=== PATIENT | male | born 1965 | race Caucasian/White ===

== ENCOUNTER 2019-01-08 08:29 | Emergency (ER) | payer OTHER ==
[~2019-01-08] VITALS: Ht 170.2 cm; Wt 72.6 kg
[2019-01-08 08:34] VITALS: BP 135/80
--- NOTE | 2019-01-08 08:42 | NUR ---
Patient ambulated to bed 9. RN evaluating patient at bedside.
--- NOTE | 2019-01-08 08:45 | NUR ---
AAO X4 PT AMBULATES TO BED 9 W/ C/O INTERMITENT LUQ ABDOMINAL PAIN RADIATING TO LEFT BACK X 2 WEEKS WHILE WORKING ON HIS CAR. DENIES TRAUMA, NVD MED HX: DENIES
--- NOTE | 2019-01-08 08:47 | NUR ---
Dr. Mccormack evaluating patient at bedside.
[2019-01-08 09:20] LABS: BASOPHILS # (AUTO) 0.1 K/uL (0.00-0.22); BASOPHILS % (AUTO) 0.9 % (0.0-2.0); EOSINOPHILS # (AUTO) 0.1 K/uL (0-0.4); EOSINOPHILS % (AUTO) 1.1 % (0.0-4.0); HEMATOCRIT 47.7 % (36-52); HEMOGLOBIN 16.1 g/dL (12.0-18.0); LYMPHOCYTES % (AUTO) 30.1 % (20.5-51.1); MEAN CORPUSCULAR HEMOGLOBIN 32 pg (27-31); MEAN CORPUSCULAR HGB CONC 34 g/dL (33-37); MEAN CORPUSCULAR VOLUME 93.8 fL (80-94); MONOCYTES # (AUTO) 0.6 K/uL (0.8-1.0); MONOCYTES % (AUTO) 8.3 % (1.7-9.3); NEUTROPHILS % (AUTO) 59.6 % (42.2-75.2); PLATELET COUNT (AUTO) 313 K/uL (140-450); RED BLOOD CELL COUNT(AUTO) 5.09 MIL/uL (4.20-6.10); RED CELL DISTRIBUTION WIDTH 12.9 % (11.6-13.7); WHITE BLOOD COUNT (AUTO) 6.7 K/uL (4.8-10.8)
[2019-01-08 09:34] LABS: ANION GAP 13.3 (8-16); CARBON DIOXIDE 28.2 mmol/L (21-32); POTASSIUM 4.5 mmol/L (3.5-5.1)
[2019-01-08 09:39] LABS: ALBUMIN 4.2 g/dL (3.4-5.0); TOTAL BILIRUBIN 0.5 mg/dL (0.0-1.0)
[2019-01-08 09:55] VITALS: BP 128/78
== END 2019-01-08 09:55 | disposition home or self-care (01) ==
LOC: MED 08:29
DX: R10.12 Left upper quadrant pain (principal); M54.9 Dorsalgia, unspecified; K59.00 Constipation, unspecified
CPT/HCPCS: 36415; 74018; 80053; 81002; 83690; 85025; 99284; Q0092